=== PATIENT | male | born 1975 | race Caucasian/White ===

== ENCOUNTER 2017-07-06 05:46 | Emergency (ER) | payer MEDICAID ==
--- NOTE | 2017-07-06 06:06 | ED Physician Documentation ---
PD HPI OPHTHO - Stated complaint Stated Complaint: DEVIKA EYE PAIN - Chief complaint Chief Complaint: Heent - History obtained from History obtained from: Patient - History of Present Illness Timing - onset: How many days ago (2-3) Timing - details: Gradual onset Location: Both Quality / character: Itching, Burning, Aching Associated symptoms: Redness, Swelling, Discharge Contributing factors: No: Wears glasses, Wears contacts Similar symptoms before: Has not had sx before Recently seen: Not recently seen Review of Systems Constitutional: denies: Fever Eyes: reports: Discharge, Irritation PD PAST MEDICAL HISTORY - Past Medical History Past Medical History: No - Past Surgical History Past Surgical History: Yes General: Appendectomy - Present Medications Home Medications: Ambulatory Orders Medication Instructions Recorded Confirmed No Known Home Medications [No 07/06/17 07/06/17 Known Home Medications] - Allergies Allergies/Adverse Reactions: Allergies Allergy/AdvReac Type Severity Reaction Status Date / Time Penicillins Allergy Unknown Verified 07/06/17 05:59 - Social History Does the pt smoke?: Yes Smoking Status: Current every day smoker Does the pt drink ETOH?: Yes Does the pt have substance abuse?: Yes Substance Use and Type: Marijuana - Immunizations Immunizations are current?: Yes - POLST Patient has POLST: No PD ED PE NORMAL - Vitals Vital signs reviewed: Yes - General General: Alert and oriented X 3, No acute distress, Well developed/nourished - HEENT HEENT: PERRL, EOMI PD ED PE EXPANDED - Eyes Eyes: Both eyes, Eyelid swelling (mild right ), Injected conj/sclera Results - Vitals Vitals: Vital Signs - 24 hr 07/06/17 07/06/17 05:55 05:59 Temperature 36 C L Heart Rate 96 94 Respiratory 17 16 Rate Blood Pressure 126/91 H 141/90 H O2 Saturation 95 99 Oxygen O2 Source Room air PD MEDICAL DECISION MAKING - ED course Complexity details: considered differential, d/w patient Departure - Departure Disposition: 01 Home, Self Care Clinical Impression: Conjunctivitis Condition: Good Instructions: ED Conjunctivitis Bacterial Comments: Use the antibiotic drops as follows: 1 drop in each eye three times per day for 1 week Discharge Date/Time: 07/06/17 06:28
[2017-07-06 06:07] VITALS: BP 141/90
[2017-07-06] MEDS ORDERED: POLYMYXIN B/TRIMETH OPHTH DROPS EACHEYE STA (06:16)
[2017-07-06] MEDS ORDERED: POLYMYXIN B/TRIMETH OPHTH DROPS ONE (06:28)
== END 2017-07-06 06:28 | disposition home or self-care (01) ==
LOC: ED 05:46
DX: H10.9 Unspecified conjunctivitis (principal)
CPT/HCPCS: 99283; A9270

== ENCOUNTER 2017-11-14 08:55 | Emergency (ER) | payer MEDICAID ==
[2017-11-14 09:08] VITALS: BP 135/95
--- NOTE | 2017-11-14 10:00 | ED Physician Documentation ---
PD HPI URI - Stated complaint Stated Complaint: BILAT EYE IRRITATION - Chief complaint Chief Complaint: Heent - History obtained from History obtained from: Patient - History of Present Illness Timing - onset: How many days ago (2) Timing duration: Days (2) Timing details: Gradual onset, Still present Associated symptoms: Nasal congestion, Rhinorrhea, Sore throat, Productive cough , Other (bilateral eye redness and drainage .) Improves by: Medication Similar symptoms before: Diagnosis (bacterial conjunctivitis) Recently seen: Not recently seen - Additional information Additional information: 42-year-old male has developed acute bilateral eye irritation with drainage. He has also had a cough productive of yellow green phlegm and some shortness of breath. He has had use an inhaler before he does not have one now. He thinks he might need to use an inhaler. He has had this happen to him one time previously he recovered within 2-3 days after starting the drops in his eyes. Review of Systems Constitutional: denies: Fever Eyes: reports: Discharge, Irritation. denies: Decreased vision Ears: denies: Ear pain Nose: reports: Rhinorrhea / runny nose, Congestion Throat: reports: Sore throat Cardiac: denies: Chest pain / pressure, Palpitations Respiratory: reports: Cough, Wheezing GI: denies: Nausea, Vomiting : denies: Dysuria PD PAST MEDICAL HISTORY - Past Medical History Past Medical History: No - Past Surgical History Past Surgical History: Yes General: Appendectomy - Present Medications Home Medications: Ambulatory Orders Medication Instructions Recorded Confirmed Albuterol Sulf [Ventolin Hfa 1 - 2 puffs INH Q4HR PRN #1 inhaler 11/14/17 Inhaler] Azithromycin [Zithromax] 250 mg PO DAILY #6 tablet 11/14/17 Neomycin/Poly/Dex Ophth Drops 1 drops EACHEYE QID #1 bottle 11/14/17 [Maxitrol Ophth Drops] - Allergies Allergies/Adverse Reactions: Allergies Allergy/AdvReac Type Severity Reaction Status Date / Time Penicillins Allergy Unknown Verified 07/06/17 05:59 - Social History Does the pt smoke?: Yes Smoking Status: Current every day smoker Does the pt drink ETOH?: Yes Does the pt have substance abuse?: Yes - Immunizations Immunizations are current?: Yes - POLST Patient has POLST: No PD ED PE NORMAL - Vitals Vital signs reviewed: Yes (Hypertensive) - General General: No acute distress, Well developed/nourished - HEENT HEENT: Atraumatic, PERRL, EOMI, Pharynx benign, Other (There is marked inflammation of the left TM with rounding of the umbo the right is clear both eyes are erythematous in the conjunctival and sclera and there is some cobblestoning to the lower conjunctival sac. There is copious tearing.) - Neck Neck: Supple, no meningeal sign, No bony TTP - Cardiac Cardiac: RRR, No murmur - Respiratory Respiratory: No respiratory distress, Clear bilaterally - Abdomen Abdomen: Soft, Non tender - Back Back: No CVA TTP, No spinal TTP - Derm Derm: Normal color, Warm and dry, No rash - Extremities Extremities: No deformity, No edema - Neuro Neuro: No motor deficit, No sensory deficit Eye Opening: Spontaneous Motor: Obeys Commands Verbal: Oriented GCS Score: 15 - Psych Psych: Normal mood, Normal affect Results - Vitals Vitals: Vital Signs - 24 hr 11/14/17 09:06 Temperature 37.0 C Heart Rate 98 Respiratory 16 Rate Blood Pressure 135/95 H O2 Saturation 99 Oxygen O2 Source Room air PD MEDICAL DECISION MAKING - ED course Complexity details: considered differential, d/w patient ED course: 42-year-old male with bilateral conjunctivitis also has otitis on examination and feels that he needs an inhaler. He has had a cough productive of phlegm. Here in the emergency department he is administered dexamethasone 10 mg and we will place him on some azithromycin as well as some Maxitrol I drops and an inhaler. Departure - Departure Disposition: 01 Home, Self Care Clinical Impression: Conjunctivitis Qualifiers: Conjunctivitis type: acute Acute conjunctivitis type: bacterial Laterality: bilateral Qualified Code(s): H10.33 - Unspecified acute conjunctivitis, bilateral Otitis media Qualifiers: Otitis media type: suppurative Chronicity: acute Laterality: left Recurrence: not specified as recurrent Spontaneous tympanic membrane rupture: without spontaneous rupture Qualified Code(s): H66.002 - Acute suppurative otitis media without spontaneous rupture of ear drum, left ear Instructions: ED Otitis Media Acute Adult, ED Conjunctivitis Bacterial Follow-Up: [facility] [Provider Group] Prescriptions: Albuterol Sulf [Ventolin Hfa Inhaler] 1 - 2 puffs INH Q4HR PRN #1 inhaler PRN Reason: Shortness Of Air/Wheezing Azithromycin [Zithromax] 250 mg PO DAILY #6 tablet Neomycin/Poly/Dex Ophth Drops [Maxitrol Ophth Drops] 1 drops EACHEYE QID #1 bottle
== END 2017-11-14 10:14 | disposition home or self-care (01) ==
LOC: ED 08:55
DX: H10.33 Unspecified acute conjunctivitis, bilateral (principal); H66.002 Acute suppurative otitis media without spontaneous rupture of ear drum, left ear; F17.200 Nicotine dependence, unspecified, uncomplicated
CPT/HCPCS: 99283

== ENCOUNTER 2017-11-28 11:08 | Emergency (ER) | payer MEDICAID ==
--- NOTE | 2017-11-28 12:57 | ED Physician Documentation ---
PD HPI OPHTHO - Stated complaint Stated Complaint: EYE IRRITATION - Chief complaint Chief Complaint: General - History obtained from History obtained from: Patient - History of Present Illness Timing - onset: How many days ago (5) Timing - duration: Days Timing - details: Abrupt onset, Still present (had both eyes red and drainage as well as nasal congestion and drainage. Sinus pressure. No cough nor sore throat.) Location: Both Quality / character: Burning Associated symptoms: Redness, Discharge, Matting. No: Photophobia, Double vision Contributing factors: Recent URI. No: FB, Wears contacts Similar symptoms before: Has not had sx before Recently seen: Emergency Dept (Rx with eye drops and abx, both finished 2 days ago and still with symptoms.) Review of Systems Constitutional: reports: Myalgias. denies: Fever, Chills Nose: reports: Rhinorrhea / runny nose, Congestion, Sinus pressure / pain Throat: denies: Sore throat Respiratory: denies: Cough : denies: Dysuria, Frequency Skin: denies: Rash, Lesions PD PAST MEDICAL HISTORY - Past Medical History Past Medical History: No - Past Surgical History Past Surgical History: Yes General: Appendectomy Ortho: Spine surgery - Present Medications Home Medications: Ambulatory Orders Medication Instructions Recorded Confirmed Albuterol Sulf [Ventolin Hfa 1 - 2 puffs INH Q4HR PRN #1 inhaler 11/14/17 Inhaler] Cephalexin [Keflex] 500 mg PO QID #24 capsule 11/28/17 Cetirizine [ZyrTEC] 10 mg PO DAILY #20 tablet 11/28/17 Dexamethasone [Decadron] 4 mg PO DAILY #5 tablet 11/28/17 Erythromycin Base [Erythromycin 1 applic OP QID #3.5 oint...g. 11/28/17 Ophthalmic Ointment] - Allergies Allergies/Adverse Reactions: Allergies Allergy/AdvReac Type Severity Reaction Status Date / Time Penicillins Allergy Unknown Verified 11/28/17 11:12 - Social History Does the pt smoke?: Yes Smoking Status: Current every day smoker Does the pt drink ETOH?: Yes Does the pt have substance abuse?: Yes - Immunizations Immunizations are current?: Yes - POLST Patient has POLST: No PD ED PE NORMAL - Vitals Vital signs reviewed: Yes - General General: Alert and oriented X 3, Well developed/nourished - HEENT HEENT: PERRL (both eyes with redness and some purulent drainage. THroat normal. ), EOMI, Ears normal, Pharynx benign - Neck Neck: Supple, no meningeal sign, No bony TTP, Other (anterior adenopathy noted both sides. ) - Cardiac Cardiac: RRR, No murmur - Respiratory Respiratory: Clear bilaterally - Abdomen Abdomen: Soft, Non tender - Derm Derm: Normal color, Warm and dry, No rash Results - Vitals Vitals: Oxygen O2 Source Room air PD MEDICAL DECISION MAKING - ED course Complexity details: reviewed old records, considered differential (consider viral cause with URI symptoms and eye discharge bilaterally. Has been on abx oral and eyedrops without improvement. He does have purulent redness of both eyes. Consider also bacterial sinusitis with lacrimal duct backup. ), d/w patient Departure - Departure Disposition: 01 Home, Self Care Clinical Impression: Upper respiratory infection Qualifiers: URI type: unspecified URI Qualified Code(s): J06.9 - Acute upper respiratory infection, unspecified Acute conjunctivitis, bilateral Qualifiers: Acute conjunctivitis type: unspecified Qualified Code(s): H10.33 - Unspecified acute conjunctivitis, bilateral Condition: Stable Record reviewed to determine appropriate education?: Yes Instructions: ED Conjunctivitis Nonspecific, ED Sinusitis Abx Tx Prescriptions: Cephalexin [Keflex] 500 mg PO QID #24 capsule Cetirizine [ZyrTEC] 10 mg PO DAILY #20 tablet Dexamethasone [Decadron] 4 mg PO DAILY #5 tablet Erythromycin Base [Erythromycin Ophthalmic Ointment] 1 applic OP QID #3.5 oint...g. Comments: Drink lots of fluids. Use erythromycin antibiotic ointment for the eyes. Cephalexin oral antibiotic. This is if it is still bacterial and not improved. However it may be viral or allergic and given you similar symptoms in which case an antihistamine and steroid will be effective. Will treat with those as well. Recheck if still not improved over the next few days. Discharge Date/Time: 11/28/17 13:33
[2017-11-28] MEDS ORDERED: CETIRIZINE 10 MG TABLET PO STA (13:10)
[2017-11-28] MEDS ORDERED: DEXAMETHASONE 10 MG/ML VIAL PO STA (13:10)
[2017-11-28] MEDS ORDERED: cephALEXin 250 MG CAPSULE PO STA (13:10)
[2017-11-28 13:35] VITALS: BP 116/90
== END 2017-11-28 13:33 | disposition home or self-care (01) ==
LOC: ED 11:08
DX: J06.9 Acute upper respiratory infection, unspecified (principal); H10.33 Unspecified acute conjunctivitis, bilateral; F17.200 Nicotine dependence, unspecified, uncomplicated
CPT/HCPCS: 99283; A9270

== ENCOUNTER 2018-02-20 03:20 | Outpatient (CLI) | payer MEDICAID | END 2018-02-20 03:21 | disposition critical access hospital (66) | LOC: EMS 03:20 | PROVIDERS: ATTEND Surgery | DX: M79.644 Pain in right finger(s) (principal); M79.89 Other specified soft tissue disorders | CPT/HCPCS: A0425; A0429 ==

== ENCOUNTER 2018-02-20 03:42 | Emergency (ER) | payer MEDICAID ==
--- NOTE | 2018-02-20 03:47 | ED Physician Documentation ---
History of Present Illness - Stated complaint Stated Complaint: THUMB INJURY - History obtained from History obtained from: Patient - History of Present Illness Timing: How many days ago (2) Pain level now: 8 Improved by: nothing Worsened by: palpation, movement - Additonal information Additional information: patient was stuck by thorn on [place] 2 days ago to right thumb tip (he is left-hand dominant), has increasing swelling and pain right thumb since then. Review of Systems Constitutional: denies: Fever, Chills, Sweats Musculoskeletal: reports: Extremity pain (right thumb), Extremity swelling ( right thumb) Neurologic: denies: Focal weakness, Numbness PD PAST MEDICAL HISTORY - Past Medical History Past Medical History: No - Past Surgical History Past Surgical History: Yes General: Appendectomy Ortho: Spine surgery - Present Medications Home Medications: Ambulatory Orders Medication Instructions Recorded Confirmed Clindamycin HCl [Clindamycin 300MG 300 mg PO Q6HR #28 capsule 02/20/18 CAP] Sulfamethox/Trimeth 800/160 1 each PO BID #14 tablet 02/20/18 [Bactrim Ds 800/160] oxyCODONE/ACET 5/325 [Percocet 5 1 - 2 each PO Q6H PRN #14 tablet 02/20/18 mg/325 mg] - Allergies Allergies/Adverse Reactions: Allergies Allergy/AdvReac Type Severity Reaction Status Date / Time Penicillins Allergy Unknown Verified 02/20/18 03:48 - Social History Does the pt smoke?: Yes Smoking Status: Current every day smoker Does the pt drink ETOH?: Yes Does the pt have substance abuse?: Yes - Immunizations Immunizations are current?: Yes - POLST Patient has POLST: No PD ED PE NORMAL - Vitals Vital signs reviewed: Yes - General General: Alert and oriented X 3, Well developed/nourished, Other (appears uncomfortable due to pain) PD ED PE EXPANDED - Extremities Extremities: Other (no FB visualized on close inspection of right thumb; there is generalized swelling, faint erythema without distinct margins of right thumb surrounding large, tense bulla on dorsal surface over IP joint and proximal phalanx) DEVIKA UE/Hands Visual: 1 - swelling (large, tense bulla with cloudy fluid), tenderness Results - Vitals Vitals: Vital Signs - 24 hr 02/20/18 02/20/18 02/20/18 03:44 04:48 05:57 Temperature 36.9 C 36.5 C Heart Rate 100 98 71 Respiratory 18 18 18 Rate Blood Pressure 125/104 H 109/73 129/71 O2 Saturation 98 98 98 Oxygen O2 Source Room air - Labs Labs: Microbiology 02/20/18 04:18 Wound Culture - Preliminary Finger - Right Thumb Procedures - General procedure General procedure: after prep with chlorhexadine and then alcohol wipe, bulla on right thumb incised with #11 blade scalpel resulting in return of both serosanguinous and purulent material. this was performed without anesthetic (given 2 percocet before procedure), as the incised area was very thin edge of bulla and thus relatively insensate. I offered to perform digital block, although I opined this would likely be more painful than a simple, small incision of the roof of the bulla, and patient agreed. procedure tolerated well. culture obtained and sent to lab PD MEDICAL DECISION MAKING - ED course Complexity details: considered differential, d/w patient Departure - Departure Disposition: 01 Home, Self Care Clinical Impression: Cellulitis of thumb, right Condition: Good Instructions: ED Infec Skin Cellulitis Follow-Up: [facility] [Provider Group] [facility] [Provider Group] Prescriptions: Clindamycin HCl [Clindamycin 300MG CAP] 300 mg PO Q6HR #28 capsule oxyCODONE/ACET 5/325 [Percocet 5 mg/325 mg] 1 - 2 each PO Q6H PRN #14 tablet PRN Reason: Pain Sulfamethox/Trimeth 800/160 [Bactrim Ds 800/160] 1 each PO BID #14 tablet Comments: Wash the thumb, including the area that was opened on today's ER visit, with soap and water 2-3 times per day and apply an antibiotic ointment (such as bacitracin, neosporin, or polysporin), and then apply a new/fresh dressing. Discharge Date/Time: 02/20/18 05:58
[2018-02-20] MEDS ORDERED: oxyCOD/ACETAMIN 5 MG/325 MG TABLET PO STA (04:03)
[2018-02-20] MEDS ORDERED: CLINDAMYCIN 150 MG CAPSULE PO STA (04:06)
[2018-02-20] MEDS ORDERED: SULFAMETH/TRIMETH DS 800/160 MG TABLET PO STA (04:06)
[2018-02-20] MEDS ORDERED: BACITRACIN OINT TOP STA ×2 (04:38→04:40)
[2018-02-20 05:58] VITALS: BP 129/71
== END 2018-02-20 05:58 | disposition home or self-care (01) ==
LOC: EDBD → EDUNIT# → ED 03:42
DX: L03.011 Cellulitis of right finger (principal); F17.200 Nicotine dependence, unspecified, uncomplicated
CPT/HCPCS: 10060; 87070; 87181; 87205; 99283; A9270

== ENCOUNTER 2019-11-02 04:28 | Outpatient (CLI) | payer MEDICAID | END 2019-11-02 04:29 | disposition critical access hospital (66) | LOC: EMS 04:28 | PROVIDERS: ATTEND Surgery | DX: R46.4 Slowness and poor responsiveness (principal) | CPT/HCPCS: A0425; A0427; A0999 ==

== ENCOUNTER 2019-11-02 04:43 | Emergency (ER) | payer MEDICAID ==
--- NOTE | 2019-11-02 04:53 | ED Physician Documentation ---
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 Medics arrived to find patient unresponsive to verbal and tactile stimuli except sternal rub. Given narcan and he subsequently woke and was AAOx3; this was approximately 20-25 minutes SENIOR TECHNICAL MANAGER. While being taken into rig and on way to ED, patient has gradually become increasingly somnolent. Per medic report, when patient was awake, he told medic that he had smoked some kind of opiate or opiate mixture, but he did not know exactly what it was. Review of Systems Unable to obtain: AMS PD PAST MEDICAL HISTORY - Past Medical History Past Medical History: No - Past Surgical History Past Surgical History: Yes General: Appendectomy Ortho: Spine surgery - Present Medications Home Medications: Ambulatory Orders Medication Instructions Recorded Confirmed Clindamycin HCl [Clindamycin 300MG 300 mg PO Q6HR #28 capsule 02/20/18 CAP] Sulfamethox/Trimeth 800/160 1 each PO BID #14 tablet 02/20/18 [Bactrim Ds 800/160] oxyCODONE/ACET 5/325 [Percocet 5 1 - 2 each PO Q6H PRN #14 tablet 02/20/18 mg/325 mg] - Allergies Allergies/Adverse Reactions: Allergies Allergy/AdvReac Type Severity Reaction Status Date / Time Penicillins Allergy Unknown Verified 02/20/18 03:48 - Social History Does the pt smoke?: Yes Smoking Status: Current every day smoker Does the pt drink ETOH?: Yes Does the pt have substance abuse?: Yes - Immunizations Immunizations are current?: Yes - POLST Patient has POLST: No PD ED PE NORMAL - Vitals Vital signs reviewed: Yes - General General: No acute distress, Well developed/nourished - HEENT HEENT: Atraumatic, PERRL, EOMI, Moist mucous membranes - Neck Neck: Supple, no meningeal sign - Cardiac Cardiac: RRR, No murmur - Respiratory Respiratory: No respiratory distress, Clear bilaterally - Abdomen Abdomen: Soft - Derm Derm: Normal color, Warm and dry - Neuro Eye Opening: To Voice Motor: Obeys Commands Verbal: Confused (says he is in [place]) GCS Score: 13 PD ED PE EXPANDED - General General: Disheveled, poorly kept, Lethargic (briefly arousable to voice with repeated tactile, irritable. Says "I don't even want to be here" but eventually is cooperative. He rapidly falls back asleep and many answers are mumbled and incoherent) Results - Vitals Vitals: Vital Signs - 24 hr 11/02/19 11/02/19 11/02/19 04:44 04:55 05:17 Temperature 36.3 C L Heart Rate 84 81 91 Respiratory 16 12 23 Rate Blood Pressure 136/107 H 138/96 H 132/100 H O2 Saturation 95 94 95 11/02/19 11/02/19 05:40 07:00 Temperature 36.8 C Heart Rate 75 81 Respiratory 16 16 Rate Blood Pressure 147/109 H 133/93 H O2 Saturation 98 98 Oxygen O2 Source Room air - Labs Labs: Laboratory Tests 11/02/19 11/02/19 04:58 04:58 WBC 7.1 RBC 4.58 L Hgb 14.2 Hct 42.4 MCV 92.6 MCH 31.0 MCHC 33.5 RDW 12.8 Plt Count 257 MPV 8.5 Neut # (Auto) 4.3 Lymph # (Auto) 1.7 [place] # (Auto) 0.8 Eos # (Auto) 0.2 Baso # (Auto) 0.0 Absolute Nucleated RBC 0.00 Nucleated RBC % 0.0 Sodium 137 Potassium 3.6 Chloride 104 Carbon Dioxide 26 Anion Gap 7.0 BUN 18 Creatinine 1.1 Estimated GFR (MDRD) 72 L Glucose 159 H Calcium 9.0 Total Bilirubin 1.3 H AST 27 ALT 20 Alkaline Phosphatase 57 Total Protein 7.6 Albumin 4.3 Globulin 3.3 Albumin/Globulin Ratio 1.3 Lipase 25 Ethyl Alcohol < 5.0 PD MEDICAL DECISION MAKING - ED course Complexity details: reviewed old records, reviewed results, re-evaluated patient, considered differential, d/w patient ED course: during ED stay, patient gradually became more awake and alert on serial reexaminations. He eventually was AAOx3, ambulating without difficulty or assistance. Departure - Departure Disposition: 01 Home, Self Care Clinical Impression: Altered mental status Condition: Good Instructions: ED Altered Loc, ED Overdose Opiate
[2019-11-02 05:08] LABS: BASOPHILS % (AUTO) 0.6 %; EOSINOPHILS # (AUTO) 0.2 10^3/uL (0.0-0.7); EOSINOPHILS % (AUTO) 2.7 %; HGB - HEMOGLOBIN 14.2 g/dL (14.0-18.0); LYMPHOCYTES # (AUTO) 1.7 10^3/uL (1.5-3.5); LYMPHOCYTES % (AUTO) 23.8 %; MEAN CORPUSCULAR HGB CONC 33.5 g/dL (32.0-36.0); MEAN CORPUSCULAR VOLUME 92.6 fL (80.0-94.0); MEAN PLATELET VOLUME 8.5 fL (7.4-11.4); MONOCYTES # (AUTO) 0.8 10^3/uL (0.0-1.0); MONOCYTES % (AUTO) 11.5 %; NEUTROPHILS # (AUTO) 4.3 10^3/uL (1.5-6.6); NEUTROPHILS % (AUTO) 61.1 %; PLT - PLATELET COUNT 257 10^3/uL (130-450); RED BLOOD COUNT 4.58 10^6/uL (4.70-6.10); RED CELL DISTRIBUTION WIDTH 12.8 % (12.0-15.0); WHITE BLOOD COUNT 7.1 x10^3/uL (4.8-10.8)
[2019-11-02 05:21] LABS: ALBUMIN 4.3 g/dL (3.2-5.5); ALBUMIN/GLOBULIN RATIO 1.3 (1.0-2.2); ALKALINE PHOSPHATASE 57 IU/L (42-121); ALT ALANINE AMINOTRANSFERASE 20 IU/L (10-60); AST ASPARTATE AMINOTRANSFERASE 27 IU/L (10-42); BILIRUBIN,TOTAL 1.3 mg/dL (0.2-1.0); BUN - BLOOD UREA NITROGEN 18 mg/dL (6-20); CARBON DIOXIDE - CO2 26 mmol/L (21-32); CHLORIDE 104 mmol/L (101-111); CREATININE 1.1 mg/dL (0.6-1.2); GFR - MDRD 72 (>89); GLUCOSE 159 mg/dL (70-100); LIPASE 25 U/L (22-51); SODIUM 137 mmol/L (135-145); TOTAL PROTEIN 7.6 g/dL (6.7-8.2)
[2019-11-02 07:12] VITALS: BP 133/93
== END 2019-11-02 08:00 | disposition home or self-care (01) ==
LOC: EDUNIT# → ED 04:43
DX: R40.0 Somnolence (principal); F17.200 Nicotine dependence, unspecified, uncomplicated
CPT/HCPCS: 36415; 80053; 80320; 83690; 85025; 99281; 99284

== ENCOUNTER 2021-10-06 11:31 | Emergency (ER) | payer MEDICAID ==
[2021-10-06 11:40] VITALS: BP 140/100
[2021-10-06] MEDS ORDERED: SULFAMETH/TRIMETH DS 800/160 MG TABLET PO STA (11:51)
--- NOTE | 2021-10-06 11:53 | ED Physician Documentation ---
History of Present Illness - Stated complaint Stated Complaint: L HAND CUT - Chief complaint Chief Complaint: Ext Problem - Additonal information Additional information: 46-year-old male who is homeless presents to the emergency department for evaluation of left hand erythema swelling and pain. He reports getting his finger caught on something a number of days ago. He has a scab that has developed on his left hand between the MCP and PIP joint of the middle finger. He now has some progressive erythema and pain. No fevers no red streaking. Uncertain of last tetanus. He is hesitant to receive a tetanus vaccine as he is convinced that we will give him the COVID-19 vaccine. Review of Systems Constitutional: denies: Fever, Chills Throat: reports: Reviewed and negative Cardiac: reports: Reviewed and negative Respiratory: reports: Reviewed and negative GI: reports: Reviewed and negative : reports: Reviewed and negative Skin: reports: Lesions PD PAST MEDICAL HISTORY - Past Surgical History Past Surgical History: Yes General: Appendectomy Ortho: Spine surgery - Present Medications Home Medications: Ambulatory Orders Medication Instructions Recorded Confirmed Clindamycin HCl [Clindamycin 300MG 300 mg PO Q6HR #28 capsule 02/20/18 CAP] Sulfamethox/Trimeth 800/160 1 each PO BID #14 tablet 02/20/18 [Bactrim Ds 800/160] oxyCODONE/ACET 5/325 [Percocet 5 1 - 2 each PO Q6H PRN #14 tablet 02/20/18 mg/325 mg] Sulfamethox/Trimeth 800/160 1 each PO BID #14 tablet 10/06/21 [Bactrim Ds 800/160] - Allergies Allergies/Adverse Reactions: Allergies Allergy/AdvReac Type Severity Reaction Status Date / Time Penicillins Allergy Unknown Verified 10/06/21 11:40 - Social History Does the pt smoke?: Yes Smoking Status: Current every day smoker Does the pt drink ETOH?: Yes Does the pt have substance abuse?: Yes - Immunizations Immunizations are current?: Yes - POLST Patient has POLST: No PD ED PE EXPANDED - Extremities Extremities: Left hand (scab dorsum of left middle finger between MCP and PIP joint. generalized swelling, erythema nd induration. Able to make a full fist. swelling extends to the dorsum of the hand 2-3 cm) Results - Vitals Vitals: Vital Signs - 24 hr 10/06/21 11:36 Temperature 36.5 C Heart Rate 115 H Respiratory 18 Rate Blood Pressure 140/100 H O2 Saturation 98 Oxygen O2 Source Room air PD MEDICAL DECISION MAKING - ED course Complexity details: reviewed results, re-evaluated patient, d/w patient ED course: 46-year-old male who is homeless presents emergency department with 3 to 4 days of swelling and erythema on the dorsum of his left hand middle finger between the MCP and PIP joints. He reportedly cut himself on something unknown a number of days ago. He does have a scab there that was deroofed and a small amount of purulence drained. At this time we have elected to proceed with oral antibiotics and advised warm compress. If infection is not improving despite to this patient will return to the ER for a formal incision and drainage. Tetanus was updated today. Departure - Departure Disposition: 01 Home, Self Care Clinical Impression: Cellulitis of left hand Condition: Stable Record reviewed to determine appropriate education?: Yes Instructions: Cellulitis Dc Prescriptions: Sulfamethox/Trimeth 800/160 [Bactrim Ds 800/160] 1 each PO BID #14 tablet Comments: You are seen today in the ER for infection in your left hand. I have sent a prescription for Bactrim to the [facility] in [place]. Please fill it this afternoon and begin taking twice daily for the next week. Your tetanus was updated today and is current for the next [address] a warm compress on your left hand for 10 minutes 3 times a day. Following that apply antibiotic ointment to your skin sore. If despite warm compress and oral antibiotics you are having increasing pain, fevers swelling or redness then please return immediately to the ER for a second evaluation.
[2021-10-06] MEDS: TETANUS/DIPHTHERIA/PERTUSSIS 0.5 ML SYRINGE IM ONE ×2 (11:56→12:12)
== END 2021-10-06 12:16 | disposition home or self-care (01) ==
LOC: ED 11:31
DX: L03.114 Cellulitis of left upper limb (principal); S61.213D Laceration without foreign body of left middle finger without damage to nail, subsequent encounter; X58.XXXD Exposure to other specified factors, subsequent encounter; Z23 Encounter for immunization; F17.200 Nicotine dependence, unspecified, uncomplicated; Z59.00 Homelessness unspecified
CPT/HCPCS: 99282; A9270